=== PATIENT | male | born 1985 | race African-American/Black ===

== ENCOUNTER 2016-06-11 19:06 | Emergency (ER) | payer BC ==
[~2016-06-11] VITALS: Ht 170.2 cm; Wt 95.0 kg
[~2016-06-11 19:06] MED LIST: CLEO300C2 PO; LIDO2SOL SSP; TRAM50 PO
[2016-06-11 19:08] VITALS: BP 145/68; PULSE 94; RESP 16; TEMP 98.5; O2SAT 99
--- NOTE | 2016-06-11 19:47 | RADRPT ---
EXAM DATE/TIME: 06/11/2016 19:39 [place] COMPARISON: No previous studies available for comparison. INDICATIONS : Left Knee Pain after fall. MEDICAL HISTORY : None. SURGICAL HISTORY : None. ENCOUNTER: Initial ACUITY: 1 day PAIN SCORE: 8/10 LOCATION: Left knee. FINDINGS: No fracture is seen. The knee joint is normally aligned. There does appear to be some soft-tissue s welling seen anterior to the patella. An effusion is not seen. CONCLUSION: Superficial soft-tissue swelling. Demond Easley MD on June 11, 2016 at 19:41 Board Certified Radiologist. This report was verified electronically.
[2016-06-11] MEDS ORDERED: HYDR-3533 PO (19:51)
[2016-06-11] MEDS ORDERED: IBUP800T23 PO (19:51)
--- NOTE | 2016-06-11 19:57 | PD ---
HPI Chief Complaint: Pain: Acute or Chronic Time Seen by Provider: 19:54 Travel History International Travel<30 days: No Contact w/Intl Traveler<30days: No Traveled to known affect area: No History of Present Illness HPI 31-year-old black male presents emergency Department with complaints of left knee pain after jumping [place] trampoline [place] the [employer] [place] one hour prior to arrival. He states that he felt as if he may have hyperextended his knee. He has had decreased ability to bear weight and bend his leg due to pain and swelling. He does not report hearing a pop or crack. He denies any prior knee injury. No other complaints. Pain is moderate PFSH Past Medical History Medical History: Denies Significant Hx Tetanus Vaccination: < 5 Years Past Surgical History Abdominal Surgery: Yes (HERNIA REPAIR) Social History Alcohol Use: No Tobacco Use: No Substance Use: No Allergies-Medications (Allergen,Severity, Reaction): Coded Allergies: Amoxicillin (Verified Allergy, Severe, 06/11/16) Reported Meds & Prescriptions Reported Meds & Active Scripts Active Ibuprofen 800 Mg Tab 800 Mg PO Q8H PRN Lortab (Hydrocodone-Acetaminophen) 5-325 Mg Tab 1 Tab PO Q6H PRN Ultram (Tramadol HCl) 50 Mg Tab 1 Tab PO Q6 PRN FOR PAIN Lidocaine Viscous (Lidocaine HCl) 2 % [place] 5 Ml SSP Q4H PRN 10 Days SWISH AND SPIT Cleocin (Clindamycin HCl) 300 Mg Cap 300 Mg PO QID Review of Systems Except as stated in HPI: all other systems reviewed are Neg Physical Exam Narrative GENERAL: Well-developed, well-nourished in no apparent distress. Nontoxic appearing. HEAD: Normocephalic, atraumatic. EYES: Pupils equal round and reactive. Extraocular motions intact. No scleral icterus. No injection or drainage. ENT: Nose clear. Throat without erythema, tonsillar hypertrophy or exudate. Uvula midline. Airway patent. NECK: Trachea midline. Supple, nontender, moves head freely. No central bony tenderness or spasm. CARDIOVASCULAR: Regular rate and rhythm without murmurs, gallops, or rubs. RESPIRATORY: Clear to auscultation. Breath sounds equal bilaterally. No wheezes , rales, or rhonchi. GASTROINTESTINAL: Abdomen soft, non-tender, nondistended. No hepato-splenomegaly , or palpable masses. No guarding. EXTREMITIES: No clubbing, cyanosis, or edema. No joint tenderness. Examination of the left lower extremity reveals a soft tissue deficit of the extensor tendon of the quadriceps as it connects to the patella. Patient appears to have a quadriceps patellar tendon partial rupture. The patient is able to extend but has limited strength. Positive pain. Mild swelling. No pain on the medial lateral components of the knee. No posterior knee pain. No anterior posterior draw. No real lateral collateral ligament instability. No pain in the hip, ankle or foot. He has intact gross sensation. BACK: Nontender without deformity. No flank tenderness. NEUROLOGICAL: Awake, alert and oriented x 3 .Cranial nerves grossly intact. Motor and sensory grossly within normal limits. Normal speech. Data Data Last Documented VS Vital Signs Date Time Temp Pulse Resp B/P Pulse Ox O2 Delivery O2 Flow Rate FiO2 06/11/16 19:08 98.5 94 16 145/68 99 Orders Knee, Complete (4vws) (06/11/16 19:15) Ice/Cold Pack (06/11/16 19:15) Splint Or Brace Apply/Monitor (06/11/16 19:50) Crutches (06/11/16 19:50) Acetamin-Hydrocod 325-5 Mg ([place] 5-325 (06/11/16 20:00) Ibuprofen (Motrin) (06/11/16 20:00) MDM Medical Decision Making Medical Screen Exam Complete: Yes Emergency Medical Condition: Yes Medical Record Reviewed: Yes Interpretation(s) Left knee: Negative for fracture. No subluxation. Mild soft tissue swelling. Differential Diagnosis MDM: High Differential diagnoses: Fracture, sprain, strain, dislocation, contusion, neurovascular injury Narrative Course Patient's x-ray is negative. He is given Motrin 800 and Lortab 5 a grams by mouth. Knee immobilizer and crutches. Icepack applied. This is a quadriceps tendon partial rupture Diagnosis Primary Impression: quadriceps tendon partial rupture Patient Instructions: Narcotic given in the ED, General Instructions Departure Forms: Tests/Procedures, Work Release Special Instructions: No work 1 week. Additional Instructions: Rest. Elevation. Ice packs for the next 3 days. Knee immobilizer and crutches. No weight-bearing. Medications as directed Follow-up with an orthopedist or your doctor in 3-5 days. Return to the ER if any problems Med/Other Pt SpecificInfo: Prescription(s) given Scripts Ibuprofen 800 Mg [id number] Mg PO Q8H PRN (Pain/Inflammation) #30 TAB Prov:Valentine Armenta DO 06/11/16 Hydrocodone-Acetaminophen (Lortab)5-325 Mg Tab1 Tab PO Q6H PRN (PAIN) #20 TAB Prov:Valentine Armenta DO 06/11/16 Disposition: 01 DISCHARGE HOME Condition: Stable Edd Gallegos Jun 11, 2016 19:57
[2016-06-11] MEDS ORDERED: IBUPROFEN 800 MG TAB PO ONE (20:00)
[2016-06-11] MEDS ORDERED: ACETAMINOPHEN/HYDROcodone 325 MG/5 MG TAB PO ONE (20:00)
[2016-06-16] MEDS ORDERED: ACET1CAP18 PO (12:37)
[2016-06-16] MEDS ORDERED: HYDR-3366 PO (15:43)
== END 2016-06-11 20:17 | disposition home or self-care (01) ==
LOC: NEPB 19:06
DX: S76.112A Strain of left quadriceps muscle, fascia and tendon, initial encounter (principal); X50.0XXA Overexertion from strenuous movement or load, initial encounter; Y93.44 Activity, trampolining; Y92.39 Other specified sports and athletic area as the place of occurrence of the external cause
CPT/HCPCS: 73564; 99283; E0113; L1830

== ENCOUNTER → 2016-06-16 | Day surgery (SDC) | payer BC ==
[~2016-06-16] VITALS: Ht 170.2 cm; Wt 94.5 kg
[~2016-06-16] MED LIST changes: +*morphine SULFATE 8 MG/ML PERIprocedure ONLY ONE; +ACET1CAP18 PO; +ACETAMINOPHEN 1000 MG/100 ML VIAL IV ONE; +ACETAMINOPHEN/HYDROcodone 325 MG/7.5 MG TAB PO PRN; +BUPIVACAINE LIPOSO PF 1.3% INJ 20 ML in SODIUM CHLORIDE 0.9% INJ 40 ML PERIART SCH; +BUPIVACAINE LIPOSOME PF 1.3% 20 ML VIAL NB ONE; +CHLORHEXIDINE GLUCONATE 4% SOLN 120 ML BTL TOP SCH; -CLEO300C2 PO; +CLINDAMYCIN 900 MG/NS 100 ML IV SCH; +CLINDAMYCIN PHOS 900 MG/6 ML VIAL ONE; +DEXAMETHASONE SOD PHOS 4 MG/ML VIAL ONE; +DO NOT ADM ANY ANTICOAGULANT DRUGS XX PRN; +FAMOTIDINE 20 MG/2 ML VIAL ONE; +GENTAMICIN SULFATE 80 MG/2 ML VIAL ONE; +HYDR-3366 PO; +HYDR-3533 PO; +IBUP800T23 PO; +INSULIN HUMAN REGULAR 1,000 UNITS/10 ML VIAL SQ PRN; +LACTATED RINGER'S 1000 ML IV SCH; -LIDO2SOL SSP; +METOPROLOL TARTRATE 25 MG TAB PO PRN; +MIDAZOLAM HCL 5 MG/5 ML VIAL ONE; +MORPHINE SULFATE 4 MG/ML INJ IV PUSH PRN; +MORPHINE SULFATE 8 MG/ML INJ IV PUSH PRN; +ONDANSETRON HCL 4 MG/2 ML VIAL IV PUSH ONE; +POVIDONE IODINE 7.5% SCRUB 118 ML BOTTLE TOP SCH; +PROPOFOL 200 MG/20 ML AMP IV ONE; +SODIUM CHLORID 0.9% 500 ML IV SCH; +SODIUM CHLORIDE 0.9% FLUSH 5 ML FLUSH IVF PRN; +SODIUM CHLORIDE 0.9% FLUSH 5 ML FLUSH IVF SCH; +SODIUM CHLORIDE 0.9% INJ 100 ML ONE; -TRAM50 PO; +fentaNYL CITRATE 250 MCG/5 ML AMP ONE
[2016-06-16 12:43] VITALS: BP 131/71; PULSE 81; RESP 20; TEMP 97.9; O2SAT 98
--- NOTE | 2016-06-16 15:40 | PD.OP ---
cc: Gilberto Zuniga MD Operative Report Date of Surgery: Jun 16, 2016 Preoperative Diagnosis: Left knee quadriceps tendon rupture Postoperative Diagnosis: Same Procedure: Left knee open repair of quadriceps tendon rupture Anesthesia: Gen. Surgeon: Gilberto Zuniga Mule Developer(s): PARTH Vasquez The surgical procedure was assisted by my Advanced Registered Nurse Practitioner. My FANCY SEWER presence was necessary throughout this case for the manipulation and positioning of the surgical extremity. My FANCY SEWER was assisting me throughout the duration of this procedure. The skill set of an Advance Registered Nurse Practitioner was medically necessary to complete this procedure. During the surgical case, the director surgical was working at the back table and the Advance Registered Nurse Practitioner was directly assisting me. Operation and Findings: This patient had a preoperative MRI which confirmed the clinical suspicion of a quadriceps tendon rupture. He understood the risks and benefits of surgical management. See outpatient notes for further details. The patient was brought back to the operative theater. He received intravenous antibiotics. Gen. anesthesia was administered. The left lower extremity was prepped and draped in the usual sterile fashion with a nonsterile tourniquet applied. The leg was exsanguinated. The tourniquet was raised. A standard anterior incision was made. We identified significant hematoma which was evacuated. We thoroughly irrigated. We confirmed the full-thickness quadriceps tendon tear. There was a small stump of tendon that was still left behind on the proximal pole of the patella. This was later incorporated into the repair. We then placed 2 individual, #2 FiberWire stitches up and down the quadriceps tendon in a baseball locking stitch fashion. This left us with 4 limbs to the fiber wires. We then drilled 3 holes into the patella and threaded the 4 sutures into these 3 holes. With the knee in full extension we tied these FiberWires and then tied them to themselves. There was extensive tearing of the medial and lateral retinaculum. These areas were repaired with #1 Vicryl. We then laid the residual stump of the tendon that was attached to the patella anterior to the quadriceps repaired tendon and secured this with #1 Vicryl paying close attention to avoid rupture of previous FiberWire suture. The tourniquet was released and hemostasis was achieved. We closed skin with # 2 Vicryl followed by amy. The leg was dressed and the patient was placed into a canvas knee splint. Postoperative plan is for a standard quadriceps tendon repair protocol. The patient will initially be toe-touch weightbearing with a canvas knee splint. Gilberto Zuniga MD Jun 16, 2016 15:40
[2016-06-16 17:40] VITALS: BP 155/85; PULSE 98; RESP 18; TEMP 97.7; O2SAT 97
== END | disposition home or self-care (01) ==
LOC: HSDC 11:52
PROVIDERS: ATTEND Orthopaedic Surgery
DX: S76.112A Strain of left quadriceps muscle, fascia and tendon, initial encounter (principal)
CPT/HCPCS: C9290; J0131; J0690; J1100; J1580; J2250; J2270; J2405; J3010; L1830

== ENCOUNTER → 2017-05-10 | Day surgery (SDC) | payer BC ==
[~2017-05-10] MED LIST changes: -*morphine SULFATE 8 MG/ML PERIprocedure ONLY ONE; -ACETAMINOPHEN 1000 MG/100 ML VIAL IV ONE; -ACETAMINOPHEN/HYDROcodone 325 MG/7.5 MG TAB PO PRN; -BUPIVACAINE LIPOSO PF 1.3% INJ 20 ML in SODIUM CHLORIDE 0.9% INJ 40 ML PERIART SCH; -BUPIVACAINE LIPOSOME PF 1.3% 20 ML VIAL NB ONE; -CHLORHEXIDINE GLUCONATE 4% SOLN 120 ML BTL TOP SCH; -CLINDAMYCIN 900 MG/NS 100 ML IV SCH; -CLINDAMYCIN PHOS 900 MG/6 ML VIAL ONE; -DEXAMETHASONE SOD PHOS 4 MG/ML VIAL ONE; -DO NOT ADM ANY ANTICOAGULANT DRUGS XX PRN; -FAMOTIDINE 20 MG/2 ML VIAL ONE; -GENTAMICIN SULFATE 80 MG/2 ML VIAL ONE; +IBUP1TAB7 PO; -IBUP800T23 PO; -INSULIN HUMAN REGULAR 1,000 UNITS/10 ML VIAL SQ PRN; -LACTATED RINGER'S 1000 ML IV SCH; +LIDOCAINE HCL 1% 50 ML VIAL ONE; -METOPROLOL TARTRATE 25 MG TAB PO PRN; +MIDAZOLAM HCL 2 MG/2 ML VIAL ONE; -MIDAZOLAM HCL 5 MG/5 ML VIAL ONE; -MORPHINE SULFATE 4 MG/ML INJ IV PUSH PRN; -MORPHINE SULFATE 8 MG/ML INJ IV PUSH PRN; +NEOMYCIN/POLYMYXIN/BACITRACIN OINT 15 GM TUBE ONE; -POVIDONE IODINE 7.5% SCRUB 118 ML BOTTLE TOP SCH; -SODIUM CHLORID 0.9% 500 ML IV SCH; +SODIUM CHLORIDE 0.9% 250 ML ADDBAG IV ONE; -SODIUM CHLORIDE 0.9% FLUSH 5 ML FLUSH IVF PRN; -SODIUM CHLORIDE 0.9% FLUSH 5 ML FLUSH IVF SCH; -SODIUM CHLORIDE 0.9% INJ 100 ML ONE; +VANCOMYCIN HCL 1000 MG VIAL ONE; -fentaNYL CITRATE 250 MCG/5 ML AMP ONE
--- NOTE | 2017-05-10 15:05 | TN ---
cc: CK JONES M.D. DATE OF SURGERY 05/10/2017 PREOPERATIVE DIAGNOSIS Phimosis (ICD-10 code N47.1). POSTOPERATIVE DIAGNOSIS Phimosis (ICD-10 code N47.1). PROCEDURE Circumcision (CPT code 24696). INDICATION Mr. Peterson is a 31-year-old gentleman with phimosis, who presents now for definitive treatment. FINDINGS Difficulty retracting foreskin, otherwise no abnormalities detected. DETAILS OF PROCEDURE The procedure as well as risks and benefits were explained to the patient. Informed consent was obtained. The patient was taken to the major operating theatre where he was placed in supine position. The patient was identified as well as the operative site. A universal timeout was performed in standard fashion. At this time general anesthetic and prophylactic intravenous antibiotics consisting of vancomycin one gram was administered. After adequate anesthetic his genitalia and groin were prepped and draped in the usual sterile fashion. At this time a penile block was performed in standard fashion using 1% lidocaine plain and 0.25% Marcaine plain. At this time in the unretracted state a sterile skin marker was used to make circumferential markings at the level of the coronal sulcus. The foreskin was then retracted and similar markings were made circumferentially about a centimeter below the coronal sulcus at the distal shaft. Then using the sleeve technique an 11 blade scalpel was used to circumferentially incise the two previously marked areas both on the foreskin and on the distal shaft in the retracted state. This sleeve of tissue then was excised using electrocautery. After confirming hemostasis the skin edges were approximated using 3-0 chromic in an interrupted pattern first in quadrants and after there was circumferential apposition of the skin Xeroform gauze and dry dressings were applied. There were no obvious complications. Sponge and needle counts were correct at the end of the case. The patient tolerated the procedure well and emerged from anesthetic without difficulty and transferred to the recovery room in stable condition to be discharged home when criteria is met. There were no obvious complications. MD MAYURI Shannon/RONALD /2:25 PM /2:47 PM
== END | disposition home or self-care (01) ==
LOC: ESDC 10:56
PROVIDERS: ATTEND Urology
DX: N47.1 Phimosis (principal)
CPT/HCPCS: 00920; 54161; J2250; J2405; J3010; J3370